=== PATIENT | female | born 1950 | race Caucasian/White ===

== ENCOUNTER 2017-03-19 05:39 | Inpatient (IN) | payer MEDICARE, OTHER ==
[2017-03-19] MEDS: traMADol 50 MG TAB PO ×2 (06:24→10:15)
[2017-03-19] MEDS: DEXAMETHASONE 1 MG TAB PO (06:25)
[2017-03-19] MEDS: GABAPENTIN 300 MG CAP PO ×4 (06:25→21:39)
[2017-03-19] MEDS: VANCOMYCIN 1 GM (PMX) 250 ML IVPB (06:45)
[2017-03-19] MEDS ORDERED: morphine SULFATE/PF (10 MG/10 ML) INJ (06:51)
[2017-03-19] MEDS ORDERED: METOCLOPRAMIDE 10 MG INJ (06:51)
[2017-03-19] MEDS ORDERED: MIDAZOLAM 1 MG/ML 2 ML INJ (06:51)
[2017-03-19] MEDS ORDERED: EPHEDrine SULFATE 50 MG/5 ML SYG (07:00)
[2017-03-19] MEDS: TRANEXAMIC ACID 1,000 MG in DEXTROSE 5% 100 ML IVPB (07:00)
[2017-03-19] MEDS ORDERED: PROPOFOL 20 ML (07:20)
[2017-03-19] MEDS ORDERED: ONDANSETRON 4 MG INJ (07:35)
[2017-03-19] MEDS: CA CHLORIDE 10% 10 ML SYRINGE (08:20)
[2017-03-19] MEDS: THROMBIN 5000 UNIT VIAL (08:21)
[2017-03-19] MEDS: POLYMYXIN/BACITRACIN 1L IRRIG (08:22)
[2017-03-19] MEDS: SOD CHLORIDE 0.9% 100 ML, TRANEXAMIC ACID 3,000 MG IRR (08:23)
[2017-03-19] MEDS: BUPIVACAINE 0.5% (SDV) 30 ML, morphine SULFATE (PF) 8 MG, EPINEPHrine 0.3 MG, KETOROLAC... IRR (08:23)
[2017-03-19] MEDS ORDERED: SUMATRIPTAN 50 MG TAB PO ×2 (09:00)
[2017-03-19] MEDS ORDERED: MAGNESIUM HYDROXIDE 30ML CUP PO (09:00)
[2017-03-19] MEDS ORDERED: KETOROLAC 15 MG INJ IV (09:00)
[2017-03-19] MEDS: METOPROLOL 25 MG TAB PO ×3 (09:00→20:32)
[2017-03-19] MEDS: SENNA/DOCUSATE NA (8.6MG/50MG) TAB PO ×3 (09:00→20:31)
[2017-03-19] MEDS ORDERED: ONDANSETRON 4 MG INJ IV ×2 (09:00→09:30)
[2017-03-19] MEDS ORDERED: ACETAMINOPHEN 500 MG TAB PO (09:00)
[2017-03-19] MEDS ORDERED: OXYCODONE/ACETAMINOPHEN (5/325) TAB PO (09:00)
[2017-03-19] MEDS ORDERED: MEPERIDINE 25 MG INJ IV (09:30)
[2017-03-19] MEDS ORDERED: DIPHENHYDRAMINE 50 MG INJ IV (09:30)
[2017-03-19] MEDS ORDERED: HYDROmorphONE (0.2 MG/ML) 10ML SYG IV ×3 (09:30)
[2017-03-19] MEDS: TRANEXAMIC ACID 1,000 MG in DEXTROSE 5% 100 ML IV (09:36)
[2017-03-19 10:00] LABS: ADD MAN DIFF? NO
[2017-03-19 10:14] LABS: BASOPHILS % 0.2 % (0.0-2.0); EOSINOPHILS % 0.2 % (0.0-7.0); HEMATOCRIT 36.7 % (37.0-47.0); HEMOGLOBIN 12.8 g/dl (12.0-16.0); LYMPHOCYTES # 0.8 10^3/ul (0.8-2.9); LYMPHOCYTES % 9.1 % (15.0-51.0); MEAN CORPUSCULAR HEMOGLOBIN 33.2 pg (29.0-33.0); MEAN CORPUSCULAR HGB CONC 34.9 g/dl (32.0-37.0); MEAN CORPUSCULAR VOLUME 95.1 fl (82.0-101.0); MEAN PLATELET VOLUME 10.6 fl (7.4-10.4); MONOCYTE # 0.2 10^3/ul (0.3-0.9); MONOCYTES % 2.4 % (0.0-11.0); NEUTROPHIL # 7.1 10^3/ul (1.6-7.5); NEUTROPHILS % 86.8 % (39.0-77.0); PLATELET COUNT 148 10^3/UL (140-415); RED BLOOD COUNT 3.86 10^6/ul (4.20-5.40); RED CELL DISTRIBUTION WIDTH 12.1 % (11.5-14.5)
[2017-03-19 10:14] LABS: WHITE BLOOD COUNT 8.2 10^3/ul (4.8-10.8)
[2017-03-19] MEDS ORDERED: ACETAMINOPHEN 1000MG/100ML IV 100 ML (10:35)
[2017-03-19] MEDS: DIPHENHYDRAMINE 50 MG INJ IV ×4 (10:52→20:26)
[2017-03-19] MEDS: LACTATED RINGER'S 1,000 ML IV ×2 (10:54→17:46)
[2017-03-19] MEDS: DEXAMETHASONE 2 MG TAB PO ×2 (11:50→17:30)
[2017-03-19] MEDS: VANCOMYCIN 500MG/NS (PMX) 100 ML IVPB (17:30)
[2017-03-19] MEDS: morphine 4 MG/ML VIAL IV (19:47)
[2017-03-19] MEDS: PROGESTERONE 100 MG CAP PO (21:00)
[2017-03-19] MEDS: hydrOXYzine HCL 25 MG TAB PO (21:39)
[2017-03-19] MEDS: ZOLPIDEM 5 MG TAB PO (21:42)
[2017-03-20] MEDS: DEXAMETHASONE 2 MG TAB PO ×2 (00:37→05:54)
[2017-03-20] MEDS: ZOLPIDEM 5 MG TAB PO (00:37)
[2017-03-20] MEDS: DIPHENHYDRAMINE 50 MG INJ IV ×2 (02:06→10:53)
[2017-03-20] MEDS: morphine 2 MG INJ IV (02:15)
[2017-03-20] MEDS: LACTATED RINGER'S 1,000 ML IV ×2 (04:35→12:46)
[2017-03-20 05:04] LABS: ADD MAN DIFF? NO
[2017-03-20 05:08] LABS: WHITE BLOOD COUNT 10.3 10^3/ul (4.8-10.8)
[2017-03-20 05:08] LABS: BASOPHILS % 0.1 % (0.0-2.0); EOSINOPHILS % 0.1 % (0.0-7.0); HEMATOCRIT 31.6 % (37.0-47.0); LYMPHOCYTES # 0.9 10^3/ul (0.8-2.9); LYMPHOCYTES % 8.5 % (15.0-51.0); MEAN CORPUSCULAR HEMOGLOBIN 33.5 pg (29.0-33.0); MEAN CORPUSCULAR HGB CONC 34.8 g/dl (32.0-37.0); MEAN CORPUSCULAR VOLUME 96.3 fl (82.0-101.0); MEAN PLATELET VOLUME 10.8 fl (7.4-10.4); MONOCYTE # 0.8 10^3/ul (0.3-0.9); MONOCYTES % 7.4 % (0.0-11.0); NEUTROPHIL # 8.5 10^3/ul (1.6-7.5); NEUTROPHILS % 83.3 % (39.0-77.0); PLATELET COUNT 137 10^3/UL (140-415); RED BLOOD COUNT 3.28 10^6/ul (4.20-5.40)
[2017-03-20 05:19] LABS: POSITIVE DIFF @See below
[2017-03-20] MEDS: OXYCODONE/ACETAMINOPHEN (5/325) TAB PO ×2 (05:53→09:53)
[2017-03-20] MEDS: hydrOXYzine HCL 25 MG TAB PO (05:54)
[2017-03-20] MEDS: VANCOMYCIN 500MG/NS (PMX) 100 ML IVPB (06:00)
[2017-03-20] MEDS: METOPROLOL 25 MG TAB PO (08:29)
[2017-03-20] MEDS: GABAPENTIN 300 MG CAP PO (08:32)
[2017-03-20] MEDS: ASPIRIN 81 MG TAB PO (08:35)
[2017-03-20] MEDS: SENNA/DOCUSATE NA (8.6MG/50MG) TAB PO (08:35)
[2017-03-20] MEDS: DIPHENHYDRAMINE 25 MG CAP PO (12:05)
== END 2017-03-20 14:20 | disposition home or self-care (01) | DRG 470 ==
LOC: REC 05:39 → MS1 11:47
PROVIDERS: Orthopaedic Surgery
PROC: 0SRB04A Replacement of Left Hip Joint with Ceramic on Polyethylene Synthetic Substitute, Uncemented, Open Approach (ICD-10-PCS; principal; 2017-03-19 06:59)
DX: M16.12 Unilateral primary osteoarthritis, left hip (principal); I10 Essential (primary) hypertension; E78.5 Hyperlipidemia, unspecified; M54.12 Radiculopathy, cervical region; M72.0 Palmar fascial fibromatosis [Dupuytren]; Z98.1 Arthrodesis status
CPT/HCPCS: 72170; 73530; 85025; 86999; 87081; 87086; 88304; 88311; 97116; 97163; 97530

== ENCOUNTER → 2018-05-17 | Outpatient (CLI) | payer MEDICARE, OTHER | END | disposition home or self-care (01) | LOC: HKI 10:12 | DX: M16.11 Unilateral primary osteoarthritis, right hip (principal); Z96.642 Presence of left artificial hip joint; Z98.1 Arthrodesis status; Z88.2 Allergy status to sulfonamides | CPT/HCPCS: G0463 ==

== ENCOUNTER 2018-07-08 05:39 | Inpatient (IN) | payer MEDICARE, OTHER ==
[2018-07-08] MEDS: DEXAMETHASONE 4 MG/ML 1 ML INJ IV (06:24)
[2018-07-08] MEDS: LACTATED RINGER'S 1,000 ML IV ×4 (06:24→22:18)
[2018-07-08] MEDS: CEFAZOLIN 2 GM/50 ML (PMX) 50 ML (FOR WT < 120 KG) IVPB (06:41)
[2018-07-08 06:57] LABS: INR 1.21; PROTIME 15.4 Sec (11.9-14.9); PT RATIO 1.2
[2018-07-08] MEDS ORDERED: EPHEDrine 25 MG/5 ML SYG (07:00)
[2018-07-08] MEDS ORDERED: DESFLURANE 15 MIN (07:00)
[2018-07-08] MEDS ORDERED: PROPOFOL 20 ML (07:23)
[2018-07-08] MEDS ORDERED: MIDAZOLAM 1 MG/ML 2 ML INJ (07:24)
[2018-07-08] MEDS ORDERED: VANCOMYCIN 1 GM (PMX) 250 ML (07:24)
[2018-07-08] MEDS ORDERED: PHENYLephrine (100 MCG/ML) 10ML SYG (07:24)
[2018-07-08] MEDS ORDERED: TRANEXAMIC ACID 1GM/100ML(PMX) 200 ML (07:24)
[2018-07-08] MEDS ORDERED: ACETAMINOPHEN 500 MG TAB PO ×2 (07:30→09:30)
[2018-07-08] MEDS ORDERED: DEXAMETHASONE 4 MG/ML 5 ML INJ (08:32)
[2018-07-08] MEDS: BACITRACIN 50000 UNITS INJ (08:48)
[2018-07-08] MEDS: POLYMYXIN B 500000 UNIT INJ (08:49)
[2018-07-08] MEDS: TRANEXAMIC ACID 1GM/100ML(PMX) 100 ML AT INCISION X1 IVPB (08:50)
[2018-07-08] MEDS ORDERED: KETOROLAC 30 MG INJ (09:07)
[2018-07-08] MEDS ORDERED: KETOROLAC 30 MG INJ IV (09:30)
[2018-07-08] MEDS: TRANEXAMIC ACID 1GM/100ML(PMX) 100 ML AT CLOSURE X1 IVPB ×2 (09:35)
[2018-07-08] MEDS ORDERED: EPINEPHrine 0.1 MG/ML SYG (09:39)
[2018-07-08] MEDS ORDERED: NACL 0.9% 3 ML SYG IV (10:00)
[2018-07-08] MEDS ORDERED: oxyCODONE 5 MG TAB PO (10:00)
[2018-07-08] MEDS ORDERED: NALOXONE (0.4 MG/ML) INJ IV (10:00)
[2018-07-08] MEDS: CLINDAMYCIN 900 MG/D5W (PMX) 50 ML IVPB ×2 (11:27→20:29)
[2018-07-08] MEDS: KETOROLAC 15 MG INJ IV ×3 (11:58→23:09)
[2018-07-08] MEDS: oxyCODONE 5 MG TAB PO ×3 (11:59→20:18)
[2018-07-08] MEDS ORDERED: ZOLPIDEM 5 MG TAB PO (12:00)
[2018-07-08] MEDS ORDERED: SUMATRIPTAN 50 MG TAB PO (12:00)
[2018-07-08] MEDS ORDERED: GABAPENTIN 100 MG CAP PO (13:00)
[2018-07-08] MEDS: GABAPENTIN 100 MG CAP PO ×2 (13:36→20:29)
[2018-07-08] MEDS: ACETAMINOPHEN 1000MG/100ML IV 100 ML IVPB (14:08)
[2018-07-08] MEDS ORDERED: PROGESTERONE 100 MG CAP PO (21:00)
[2018-07-08] MEDS ORDERED: MAGNESIUM HYDROXIDE 30ML CUP PO (21:00)
[2018-07-08] MEDS: METOPROLOL 25 MG TAB PO (21:00)
[2018-07-08] MEDS ORDERED: GABAPENTIN 300 MG CAP PO (21:00)
[2018-07-08] MEDS: DIPHENHYDRAMINE 50 MG INJ IV (22:01)
[2018-07-09] MEDS: oxyCODONE 5 MG TAB PO ×3 (03:39→12:03)
[2018-07-09 05:11] LABS: WHITE BLOOD COUNT 14.4 10^3/ul (4.8-10.8)
[2018-07-09 05:11] LABS: ADD MAN DIFF? NO; BASOPHILS % 0.1 % (0.0-2.0); EOSINOPHILS % 0.1 % (0.0-7.0); HEMATOCRIT 33.3 % (37.0-47.0); HEMOGLOBIN 11.7 g/dl (12.0-16.0); LYMPHOCYTES # 1.5 10^3/ul (0.8-2.9); LYMPHOCYTES % 10.5 % (15.0-51.0); MEAN CORPUSCULAR HGB CONC 35.1 g/dl (32.0-37.0); MEAN CORPUSCULAR VOLUME 93.8 fl (82.0-101.0); MEAN PLATELET VOLUME 11.2 fl (7.4-10.4); MONOCYTES % 6.9 % (0.0-11.0); NEUTROPHIL # 11.8 10^3/ul (1.6-7.5); NEUTROPHILS % 81.9 % (39.0-77.0); PLATELET COUNT 164 10^3/UL (140-415); RED BLOOD COUNT 3.55 10^6/ul (4.20-5.40); RED CELL DISTRIBUTION WIDTH 12.3 % (11.5-14.5)
[2018-07-09 05:35] LABS: ANION GAP 5 (5-13); BLOOD UREA NITROGEN 13 mg/dl (7-20); CALCIUM 8.4 mg/dl (8.4-10.2); CARBON DIOXIDE 27 mmol/L (21-31); CHLORIDE 105 mmol/L (97-110); CREATININE 0.66 mg/dl (0.44-1.00); Estimated GFR > 60 mL/min (>60); GLUCOSE 101 mg/dl (70-220); SODIUM 137 mmol/L (135-144)
[2018-07-09] MEDS: PANTOPRAZOLE (EC) 40 MG TAB PO (06:14)
[2018-07-09] MEDS: DOCUSATE SODIUM 100 MG CAP PO (06:22)
[2018-07-09] MEDS ORDERED: ESTRADIOL 0.1 MG/24 HR PATCH TRANSDERM (09:00)
[2018-07-09] MEDS: ASPIRIN (EC) 81 MG TAB PO (09:37)
[2018-07-09] MEDS: GABAPENTIN 100 MG CAP PO ×2 (09:38→12:52)
[2018-07-09] MEDS: METOPROLOL 25 MG TAB PO (09:39)
[2018-07-09] MEDS: KETOROLAC 15 MG INJ IV (09:43)
[2018-07-09] MEDS ORDERED: ONDANSETRON 4 MG INJ IV (10:00)
[2018-07-09] MEDS: LACTATED RINGER'S 1,000 ML IV (10:48)
[2018-07-09] MEDS: CELECOXIB 100 MG CAP PO (12:52)
== END 2018-07-09 14:35 | disposition home or self-care (01) | DRG 470 ==
LOC: REC 05:39 → MS1 13:42
PROC: 0SR904A Replacement of Right Hip Joint with Ceramic on Polyethylene Synthetic Substitute, Uncemented, Open Approach (ICD-10-PCS; principal; 2018-07-08 07:30)
DX: M16.11 Unilateral primary osteoarthritis, right hip (principal); I10 Essential (primary) hypertension; N95.1 Menopausal and female climacteric states
CPT/HCPCS: 73530; 80048; 85025; 85610; 86900; 86901; 87081; 88304; 88311; 97116; 97161; 97167